=== PATIENT | male | born 1960 ===

== ENCOUNTER 2022-10-02 17:28 | Emergency (ER) | payer OTHER ==
[~2022-10-02] VITALS: Ht 180.3 cm; Wt 105.0 kg
[2022-10-02] MEDS ORDERED: HYDROcodone-ACET 5/325MG TAB PO ONE (18:45)
[2022-10-02 19:18] VITALS: BP 105/61
[2022-10-02] MEDS ORDERED: HYDR-4902 PO (19:29)
== END 2022-10-02 19:34 | disposition home or self-care (01) ==
LOC: ER 17:28
DX: S40.011A Contusion of right shoulder, initial encounter (principal); Z98.890 Other specified postprocedural states; W18.39XA Other fall on same level, initial encounter; Y93.I9 Activity, other involving external motion; Y92.89 Other specified places as the place of occurrence of the external cause; Y99.8 Other external cause status
CPT/HCPCS: 73030